=== PATIENT | female | born 1990 | race Caucasian/White ===

== ENCOUNTER 2023-10-08 21:53 | Emergency (ER) | payer OTHER, SELFPAY ==
[2023-10-08 21:56] VITALS: BP 120/69
[2023-10-08] MEDS: MORPHINE SULFATE 4 MG IV (22:18)
[2023-10-08] MEDS: ZOFRAN 4 MG IV (22:28)
--- NOTE | 2023-10-08 22:36 | ED.GENMED ---
History of Present Illness
General
Chief Complaint: Musculo-Skeletal Complaint
Source: patient and family
Exam Limitations: none
Time Seen by Provider: 10/08/23 21:55
History of Present Illness
History of Present Illness:
33-year-old female presents after she fell on a step and injured her right ankle. Patient is 6 weeks and nervous because she recently had a miscarriage. Patient complains of right ankle pain. She denies head injury or back pain. No neck
pain no neck injury. She states she did not fall down the steps.
Past History
Past History
ED Past Medical History: Other (non Hodgkin's lymphoma, in remission)
Phy Exam
Physical Exam
Physical Exam:
CONSTITUTIONAL Vital signs reviewed, Patient alert and oriented to person, place and time. Well-appearing
HEAD atraumatic, normocephalic.
EYES eyelids normal to inspection, Extraocular muscles intact, Conjunctiva normal, Sclera normal.
NECK normal range of motion, Trachea midline, no jugular venous distention.
RESP no respiratory distress
BACK No obvious deformities
UPPER EXTREMITY Gross Range of motion normal, gross motor strength normal
LOWER EXTREMITY clear deformity noted to the right ankle. There is normal perfusion and dorsalis pedis pulses bilaterally.
NEURO Speech normal, No focal motor deficits include, Bhupinder coma scale 15, Memory normal, Cranial Nerves intact to screening exam.
SKIN Skin warm, dry, and normal in color.
PSYCHIATRIC Patient oriented to person place and time, Normal affect.
Course
Orders/Labs/Results
Orders:
Orders
10/08/23 22:00
Ankle, Right 3 view CR [CR Ankle - Right Min 3 Views *] Urgent
Comment:
Reason For Exam: deformity to right ankle
10/08/23 22:03
Morphine Sulfate 4 mg IV NOW STA
10/08/23 22:17
Morphine Sulfate 4 mg .ROUTE .STK-MED ONE
10/08/23 22:27
Ondansetron Injectable [Zofran] 4 mg .ROUTE .STK-MED ONE
Ondansetron Injectable [Zofran] 4 mg IV NOW STA
10/08/23 23:45
Propofol [Diprivan] 20 ml .ROUTE .STK-MED
10/09/23 00:21
Ankle, Right 3 view CR [CR Ankle - Right Min 3 Views *] Urgent
Comment:
Reason For Exam: post-reduction
Vital Signs
Initial and Last Documented VS:
Initial Vital Signs
Temp Pulse Resp BP Pulse Ox
98.8 F 114 18 120/69 99
10/08/23 21:56 10/08/23 21:56 10/08/23 21:56 10/08/23 21:56 10/08/23 21:56
Last Documented Vital Signs
Temp Pulse Resp BP Pulse Ox
98.6 F 108 16 99/61 97
10/09/23 00:06 10/09/23 00:16 10/09/23 00:16 10/09/23 00:16 10/09/23 00:16
Procedures
Moderate Sedation
ASA Risk Score: Class I
Chart and allergies reviewed: Yes
Consent for anesthesia obtained: Yes
Time out completed (validating right patient & procedure): Yes
Moderate Sedation Start Time(when first medication is given): 12:05
History of difficult intubation: No
Airway free of obstruction: Yes
Patient has a gag reflex: Yes
Patient is able to open mouth: Yes
Patient has no dentures: Yes
Patient has no loose teeth: Yes
Medication administered by Provider during Moderate Sedation: IV Propofol (mg) (190)
Total dose administered: 190
Time drug administered: 12:05
Moderate Sedation Procedure End Time: 12:17
Splinting/Sling Placement
Right Ankle:
Procedure completed by: Dr Webster
Pre-splint extermity exam: neurovascular intact
Type of splint: posterior short leg and other (ankle u shaped splint)
Splint material: fiberglass
Splint checked by provider?: Yes
Joint/Fracture Reduction
Right Ankle:
Indication for procedure:: trimalleolar fracture
Procedure completed by: Dr. Webster
Consent form signed: Yes
If no, reason: Emergency procedure
Joint reduced: with anesthesia sedation
Injury was: closed
Further treatement: needs further treatment
Post reduction exam: stable
Capillary Refill: normal
Normal distal neurovascular exam?: Yes
MDM/Problems Addressed
MDM/Problems Addressed:
Trimalleolar ankle fracture, ankle dislocation
*Radiology
Radiology exam reviewed: preliminary read by ED provider (trimalleolar ankle fracture)
*Pulse Oximetry
Patient hypoxic: no
*Critical Care Note
Total Time (30-74mins, 75-104mins- exclusive of procedures): Not Applicable
Data Reviewed
Source: patient
Prescriptions/Medications Considered But Not Given:
Considered a variety of anesthetics in light of will proceed with propofol
Patient Management
Discussion with other providers: [employer] (Case discussed with orthopedics who recommends reduction and outpatient follow-up) and Other (Case discussed with pharmacy who recommends propofol)
Escalation/DeEscalation of care consider admission/obs:
Case discussed with seizure who recommends propofol in light of .
0026 patient tolerated sedation and reduction well. Reduction successful. Outpatient follow-up orthopedics
ED Attending Note
-
Portions of this chart may have been created with voice recognition software.� Occasional wrong word or��sound alike� substitutions may have occurred due to the inherent limitations of voice recognition software.
Discharge Plan
Departure
Patient Disposition: Home (Routine Discharge)
Date of Disposition: 10/09/23
Time of Disposition: 00:27
Patient with high blood pressure during this ER visit?: No
Discharge Problem:
Closed trimalleolar fracture of ankle
Instructions: Ankle Fracture (DC), Moderate Sedation in Adults (DC)
Prescriptions:
New
hydrocodone-acetaminophen 5-325 mg tablet
2 tab PO Q6H PRN (Reason: Pain) Qty: 14 0RF
Referrals:
Cricket Noriega MD [Active] -
Nakul Nava MD [Family Provider] -
Reza Aguilar DPM [Active] -
Activity Restrictions/Additional Instructions:
Please elevate your injured ankle and ice aggressively. Please use Tylenol for pain control. Return immediately for numbness, tingling, motor weakness, discoloration of the toes or any other concerns.
Interventions
Interventions:
*Risk Screen - Suicide Last Done: 10/08/23 21:59
*General Assessment Last Done: 10/08/23 22:43
*Neglect/Abuse Screening Last Done: 10/08/23 21:59
ED-Musculoskeletal Assessment Last Done: 10/08/23 21:59
Discharge Date and Time
Print Language: WOLOF
[2023-10-08 23:55] VITALS: BP 121/65
[2023-10-09] VITALS (17 sets, daily range): BP systolic 93–116; BP diastolic 54–78
== END 2023-10-09 01:27 | disposition home or self-care (01) ==
LOC: EMR 21:53
PROVIDERS: EMERGENCY PHYSICIAN Emergency Medicine; FAMILY PHYSICIAN Internal Medicine
DX: O99.891 Other specified diseases and conditions complicating pregnancy (principal); S82.851A Displaced trimalleolar fracture of right lower leg, initial encounter for closed fracture; W10.9XXA Fall (on) (from) unspecified stairs and steps, initial encounter; Z3A.01 Less than 8 weeks gestation of pregnancy
CPT/HCPCS: 99283; 27818; 96374; 96375; 73610

== ENCOUNTER → 2023-10-09 15:32 | Outpatient (REF) | payer OTHER, SELFPAY | LOC: RAD 15:32 | PROVIDERS: ATTENDING PHYSICIAN Orthopaedic Surgery; FAMILY PHYSICIAN Internal Medicine | DX: S82.871A Displaced pilon fracture of right tibia, initial encounter for closed fracture (principal) | CPT/HCPCS: 73700 ==

== ENCOUNTER 2023-10-20 06:26 | Day surgery (SDC) | payer OTHER, SELFPAY ==
[2023-10-20] VITALS (16 sets, daily range): BP systolic 82–118; BP diastolic 29–77; BMI 33.2
[2023-10-20] MEDS: TYLENOL 1000 MG PO (09:35)
--- NOTE | 2023-10-20 13:28 | SUR.PHASEI ---
patient easily arousable on admission, BP low but stable. Large abdomen - unable to palpate bladder, patient has some sensation that she will need to void soon. Tactile level at T12 with spinal - no movement of lower extremities. Clarification
of Dr Cherry's order. patient does not need to drink fluids, trans vag ultrasound only ..patient needs to remain in hospital post ultrasound until Dr Cherry can speak with patient.
--- NOTE | 2023-10-20 14:51 | SUR.PHASEI ---
vss, minimal discomfort in right ankle - ice on; refuses pain med, increased elevation, and added additional ice - await SDS availability, Dr Cherry spoke with patient
== END 2023-10-20 15:50 | disposition home or self-care (01) ==
LOC: SDS 06:26
PROVIDERS: ATTENDING PHYSICIAN Student in an Organized Health Care Education/Training Program; CONSULT PHYSICIAN Obstetrics & Gynecology
DX: O9A.211 Injury, poisoning and certain other consequences of external causes complicating pregnancy, first trimester (principal); S82.851A Displaced trimalleolar fracture of right lower leg, initial encounter for closed fracture; W19.XXXA Unspecified fall, initial encounter; Z3A.01 Less than 8 weeks gestation of pregnancy
CPT/HCPCS: 27822; 73600; 76000; 76801; 76815; 76817; C1713